=== PATIENT | male | born 1995 | race Caucasian/White ===

== ENCOUNTER 2018-11-15 14:00 | Emergency (ER) | payer OTHER ==
[~2018-11-15] VITALS: Ht 180.3 cm; Wt 122.7 kg
[2018-11-15] MEDS ORDERED: ONDANSETRON ODT 4 MG ONE (14:24)
[2018-11-15] MEDS ORDERED: ACETAMINOPHEN 500 MG TABLET ONE (14:25)
[2018-11-15] MEDS ORDERED: ONDANSETRON ODT 4 MG PO ONE (14:30)
[2018-11-15] MEDS ORDERED: ACETAMINOPHEN 500 MG TABLET PO ONE (14:30)
[2018-11-15 16:07] VITALS: BP 132/87
== END 2018-11-15 16:18 | disposition home or self-care (01) ==
LOC: ED 14:43
DX: S09.90XA Unspecified injury of head, initial encounter (principal); R55 Syncope and collapse; R11.0 Nausea; F32.9 Major depressive disorder, single episode, unspecified; Y04.2XXA Assault by strike against or bumped into by another person, initial encounter; Y93.89 Activity, other specified; Y92.009 Unspecified place in unspecified non-institutional (private) residence as the place of occurrence of the external cause; Y99.8 Other external cause status
CPT/HCPCS: 99283; Q0162